=== PATIENT | male | born 1935 | race Native Hawaiian/Other Pacific Islander ===

== ENCOUNTER 2017-04-24 13:51 | Outpatient (CLI) | payer OTHER | END 2017-04-24 20:08 | disposition home or self-care (01) | LOC: RAD 13:51 | DX: M25.512 Pain in left shoulder (principal) ==

== ENCOUNTER 2022-08-01 11:02 | Outpatient (CLI) | payer OTHER | END 2022-08-01 20:00 | LOC: LABW 11:02 | PROVIDERS: ATTEND Nurse Practitioner Family | DX: R19.7 Diarrhea, unspecified (principal) | CPT/HCPCS: 82272; 83630; 87015; 87045; 87324; 87328; 87329; 87338; 87449; 87899 ==